=== PATIENT | female | born 1990 | race Hispanic/Latino ===

== ENCOUNTER 2020-05-31 15:02 | Outpatient (CLI) | payer BC, MEDICAID ==
--- NOTE | 2020-05-31 15:58 | ULT ---
OB ULTRASOUND: HISTORY: anatomy FINDINGS: A single live intrauterine gestation is seen with measurements corresponding to an estimated gestatio nal age of 19 weeks 6 daysand JEAN-CLAUDE at 10/19/2020. The estimated weight measures 326 g or 11 ounces (54% by Hadlock criteria). biometry: BPD: 4.45 cm, 19 weeks 4 days HC: 16.67 cm, 19 weeks 3 days AC: 15.16 cm, 20 weeks 3 days FL: 3.14 cm, 19 weeks 6 days heart rate: 155bpm Placenta: Posterior Placenta previa: No KELLI: 15.4cm Cervical length: 4.9cm A three-vessel cord, cord insertion, kidneys, urinary bladder, stomach, 4 chambered heart, late ral ventricles, cerebellum, spine, lips/nose, upper and lower extremities are visualized. No definite anomalies are seen. IMPRESSION: Single live intrauterine gestation of 19 weeks 6 daysestimated gestational age and JEAN-CLAUDE at 10/09/2020
== END 2020-05-31 15:03 | disposition home or self-care (01) ==
LOC: BICULT 15:02
PROVIDERS: ATTEND Family Medicine
DX: Z34.82 Encounter for supervision of other normal pregnancy, second trimester (principal); Z3A.19 19 weeks gestation of pregnancy
CPT/HCPCS: 76805

== ENCOUNTER 2020-08-22 10:51 | Day surgery (SDC) | payer BC, OTHER ==
[2020-08-22 11:28] VITALS: BMI 38.5
== END 2020-08-22 17:45 | disposition home or self-care (01) ==
LOC: L&D/OP 10:51
PROVIDERS: ATTEND Family Medicine
DX: O36.8190 Decreased fetal movements, unspecified trimester, not applicable or unspecified (principal); Z3A.00 Weeks of gestation of pregnancy not specified
CPT/HCPCS: 36415; 86850; 86886

== ENCOUNTER 2020-09-23 09:45 | Inpatient (IN) | payer BC, OTHER ==
[2020-09-23] MEDS ORDERED: Bupivacaine/Epinephrine 0.25% 30 ML VIAL ONE (10:56)
[2020-09-23] MEDS: Lactated Ringer's 1,000 ML IV SCH ×2 (15:20→22:36)
[2020-09-23 15:56] VITALS: BMI 40.6
[2020-09-23] MEDS ORDERED: Diphenoxylate HCl/Atropine Tablet PO PRN (17:06)
[2020-09-23] MEDS ORDERED: Methylergonovine 0.2 MG/ML VIAL IM PRN (17:06)
[2020-09-23] MEDS ORDERED: Misoprostol 200 MCG TAB PR PRN (17:06)
[2020-09-23] MEDS ORDERED: NS / Oxytocin 40 units/1000ml 1,000 ML IV PRN (17:06)
[2020-09-23] MEDS ORDERED: Ibuprofen 800 MG TAB PO PRN (17:06)
[2020-09-23] MEDS ORDERED: hydrALAZINE 20 MG/ML VIAL SLOW IVP PRN (17:06)
[2020-09-23] MEDS ORDERED: Carboprost 250 MCG/ML AMP IM PRN (17:06)
[2020-09-23] MEDS ORDERED: Butorphanol Tartrate 1 MG/ML VIAL SLOW IVP PRN (17:06)
[2020-09-23] MEDS ORDERED: Ondansetron PF 4 MG/2 ML Vial IVP PRN ×2 (17:06→23:22)
[2020-09-23] MEDS ORDERED: Lidocaine 1% (PF) 30 ML VIAL SC PRN (17:06)
[2020-09-23] MEDS ORDERED: HYDROcodone/Acetaminophen 5/325 mg Tablet PO PRN (17:06)
[2020-09-23] MEDS ORDERED: Promethazine HCl 25 MG/ML VIAL IM PRN ×2 (17:06→23:22)
[2020-09-23] MEDS ORDERED: Penicillin G Potassium 5 MILL.UNITS in Sodium Chloride 0.9% 100 ML IVPB SCH (17:15)
[2020-09-23] MEDS ORDERED: NS w/ Oxytocin 10 units 500 ML IV SCH ×2 (17:15)
[2020-09-23 17:22] LABS: Hemoglobin 8.6 g/dL (12.0-16.0); Mean Corpuscular HGB CONC 31.9 g/dL (32.0-36.0); Mean Corpuscular Hemoglobin 25.4 pg (27.0-31.0); Mean Corpuscular Volume 79.6 fL (78.0-98.0); Mean Platelet Volume 8.4 fL (7.4-10.4); Platelet Count 266 thou/uL (130-400); RBC Distribution Width 15.4 % (11.5-14.5); Red Blood Cell (RBC) Count 3.39 mill/uL (4.20-5.40); White Blood Cell (WBC) Count 7.8 thou/uL (4.8-10.8)
[2020-09-23 17:45] LABS: Syphilis Antibody Nonreactive (Nonreactive); Syphilis Antibody Index 0.04 S/CO (<1.00 Non-Reactive)
[2020-09-23 17:46] LABS: HBSAg Index 0.28 S/CO (0-0.99); Hep B Surf Ag Non-Reactive S/CO (NonReactive)
[2020-09-23] MEDS: Misoprostol 100 MCG TAB PO SCH (18:15)
[2020-09-23] MEDS: Fentanyl 4 mcg/Bup 0.1% Cadd 100 ML in Premix Bag 1 BAG EPIDURAL SCH (22:36)
[2020-09-23] MEDS: Penicillin G 2.5 MILL.units 2.5 MILL.UNITS in Premix Bag 1 BAG IVPB SCH (23:05)
[2020-09-23] MEDS ORDERED: Naloxone HCl 0.4 mg/ml Vial IVP PRN ×2 (23:22)
[2020-09-23] MEDS ORDERED: Lactated Ringer's 500 ML IV PRN (23:22)
[2020-09-23] MEDS ORDERED: Acetaminophen 325 MG TAB PO PRN (23:22)
[2020-09-23] MEDS ORDERED: ePHEDrine 50 MG/ML VIAL SLOW IVP PRN (23:22)
[2020-09-23] MEDS ORDERED: diphenhydrAMINE 50 MG/ML VIAL IVP PRN (23:22)
[2020-09-23] MEDS ORDERED: Fentanyl 4 mcg/Bupivacaine 0.1% Cassette 100 ML EPIDURAL SCH (23:30)
[2020-09-23] MEDS ORDERED: Communication Order-Pharmacy FS SCH (23:30)
[2020-09-24] MEDS: Misoprostol 100 MCG TAB PO SCH ×3 (01:17→19:31)
[2020-09-24] MEDS: Penicillin G 2.5 MILL.units 2.5 MILL.UNITS in Premix Bag 1 BAG IVPB SCH ×3 (03:10→19:32)
[2020-09-24] MEDS: Fentanyl 4 mcg/Bup 0.1% Cadd 100 ML in Premix Bag 1 BAG EPIDURAL SCH (06:59)
[2020-09-24 07:15] LABS: SARS-CoV-2 MS2 Positive; SARS-CoV-2 N Gene Positive; SARS-CoV-2 S Gene Positive; SARS-CoV-2 orf1ab Positive
[2020-09-24 09:23] LABS: SARS-CoV-2 by NAA DETECTED (NotDetected)
[2020-09-24] MEDS ORDERED: Penicillin G 2.5 MILL.units 50 ML ONE (10:58)
[2020-09-24] MEDS ORDERED: NS / Oxytocin 40 units/1000ml 1,000 ML ONE (12:24)
[2020-09-24] MEDS ORDERED: HYDROcodone/Acetaminophen 5/325 mg Tablet PO PRN (14:50)
[2020-09-24] MEDS ORDERED: Bisacodyl 10 MG SUPP PR PRN (14:50)
[2020-09-24] MEDS ORDERED: Promethazine HCl 25 MG/ML VIAL IM PRN (14:50)
[2020-09-24] MEDS ORDERED: Milk Of Magnesia 30 ML UDCUP PO PRN (14:50)
[2020-09-24] MEDS ORDERED: hydrALAZINE 20 MG/ML VIAL SLOW IVP PRN (14:50)
[2020-09-24] MEDS ORDERED: Ondansetron PF 4 MG/2 ML Vial IVP PRN (14:50)
[2020-09-24] MEDS ORDERED: NS / Oxytocin 40 units/1000ml 1,000 ML IV SCH (14:50)
[2020-09-24] MEDS ORDERED: diphenhydrAMINE 25 MG CAP PO PRN (14:50)
[2020-09-24] MEDS ORDERED: Lanolin Ointment 7 GM TUBE TOP PRN (14:50)
[2020-09-24] MEDS: Ferrous Sulfate 325 MG TAB PO SCH (19:31)
[2020-09-24] MEDS: Lactated Ringer's 1,000 ML IV SCH (19:32)
[2020-09-24] MEDS: Docusate Calcium (SURFAK) 240 MG CAP PO SCH (20:00)
[2020-09-24] MEDS ORDERED: Ibuprofen 800 MG TAB PO SCH (22:00)
[2020-09-25] MEDS: Ibuprofen 800 MG TAB PO SCH ×3 (04:24→17:27)
[2020-09-25] MEDS: Prenatal Vitamin 1 TAB PO SCH (08:19)
[2020-09-25] MEDS: Docusate Calcium (SURFAK) 240 MG CAP PO SCH ×2 (08:19→21:18)
[2020-09-25] MEDS: Ferrous Sulfate 325 MG TAB PO SCH ×2 (08:19→17:26)
[2020-09-25] MEDS ORDERED: Adacel (T-DAP) 0.5 ML SYRINGE IM ONE (09:00)
[2020-09-26] MEDS: Ibuprofen 800 MG TAB PO SCH ×3 (01:30→18:04)
[2020-09-26] MEDS: Ferrous Sulfate 325 MG TAB PO SCH ×2 (08:31→18:04)
[2020-09-26] MEDS: Prenatal Vitamin 1 TAB PO SCH (08:31)
[2020-09-26] MEDS: Docusate Calcium (SURFAK) 240 MG CAP PO SCH ×3 (08:31→22:44)
[2020-09-26] MEDS: HYDROcodone/Acetaminophen 5/325 mg Tablet PO PRN ×2 (09:57→18:04)
[2020-09-27] MEDS: Ibuprofen 800 MG TAB PO SCH ×2 (04:17→12:03)
[2020-09-27] MEDS: Prenatal Vitamin 1 TAB PO SCH (08:11)
[2020-09-27] MEDS: Ferrous Sulfate 325 MG TAB PO SCH (08:11)
[2020-09-27] MEDS: Docusate Calcium (SURFAK) 240 MG CAP PO SCH (08:11)
[2020-09-27] MEDS: HYDROcodone/Acetaminophen 5/325 mg Tablet PO PRN (08:11)
[2020-09-27 08:30] VITALS: BP 128/73; TEMP 98.6
== END 2020-09-27 18:42 | disposition home or self-care (01) | DRG 805 ==
LOC: L&D 09:45 → L&D-LIB 17:05 → L&D 09-24 11:03 → 3SW 09-24 17:27
PROVIDERS: ADMIT Family Medicine; ATTEND Family Medicine
PROC: 10907ZC Drainage of Amniotic Fluid, Therapeutic from Products of Conception, Via Natural or Artificial Opening (ICD-10-PCS; 2020-09-23)
PROC: 3E0P7VZ Introduction of Hormone into Female Reproductive, Via Natural or Artificial Opening (ICD-10-PCS; 2020-09-23)
PROC: 10E0XZZ Delivery of Products of Conception, External Approach (ICD-10-PCS; principal; 2020-09-24)
DX: O36.0190 Maternal care for anti-D [Rh] antibodies, unspecified trimester, not applicable or unspecified (principal); U07.1 COVID-19; Z37.0 Single live birth; O98.52 Other viral diseases complicating childbirth; Z3A.36 36 weeks gestation of pregnancy; O69.81X0 Labor and delivery complicated by cord around neck, without compression, not applicable or unspecified; Z23 Encounter for immunization
CPT/HCPCS: 51702; 85027; 86780; 86850; 86900; 86901; 86922; 87340; 87635; J2540; J2590; J3490; U0003

== ENCOUNTER 2023-08-09 19:32 | Emergency (ER) | payer MEDICAID, SELFPAY ==
[2023-08-09 20:19] LABS: #Monocytes 0.3 thou/uL (0.11-0.59); #Neutrophils 6.5 thou/uL (1.40-6.50); %Basophils 0.1 % (0.0-1.0); %Eosinophils 0.1 % (0.0-10.0); %Lymphocytes 14.6 % (21.0-51.0); %Monocytes 4.3 % (0.0-10.0); %Neutrophils 80.6 % (42.0-75.0); Hematocrit 34.3 % (36.0-47.0); Hemoglobin 10.6 g/dL (12.0-16.0); Mean Corpuscular HGB CONC 30.9 g/dL (32.0-36.0); Mean Corpuscular Hemoglobin 24.8 pg (27.0-31.0); Mean Corpuscular Volume 80.3 fl (78.0-98.0); Mean Platelet Volume 10.6 fL (7.4-10.4); Platelet Count 263 10x3/uL (130-400); Red Blood Cell (RBC) Count 4.27 mill/uL (4.20-5.40)
[2023-08-09 20:27] LABS: BHCG - Serum Negative (NEGATIVE); Pregs Control Background? CLEAR/WHITE (CLR/WHITE); Pregs Control Bar Appear? YES (CONTROL BAR)
[2023-08-09 20:44] LABS: ALT (SGPT) Less than 7 U/L (8-55); AST (SGOT) 13 U/L (5-34); Albumin 5.1 g/dL (3.5-5.0); Alkaline Phosphatase 65 U/L (40-110); Anion Gap 12 mmol/L (10-20); BUN (Urea Nitrogen) 12 mg/dL (7.0-18.7); Bilirubin, Total 0.7 mg/dL (0.2-1.2); Calc. Creatinine Clearance 0 mL/min (70-130); Calcium 9.5 mg/dL (7.8-10.44); Carbon Dioxide 23 mmol/L (22-29); Chloride 104 mmol/L (98-107); Estimated GFR 117; Globulin 2.9 g/dL (2.4-3.5); Glucose 92 mg/dL (70-105); Potassium 3.4 mmol/L (3.5-5.1); Sodium 136 mmol/L (136-145)
[2023-08-09 22:29] LABS: Bacteria/HPF None Seen HPF (None Seen); Bilirubin Negative (Negative); Blood, Urine 3+ (Negative); CAUTI Indications for Culture Dysuria,urgency,freq; Clarity Clear (Clear); Glucose, Urine (Dipstick) Normal (Negative); Ketone, Urine Trace mg/dL (Negative); Leukocyte Negative Leu/uL (Negative); Nitrite Negative (Negative); Protein, Urine (Dipstick) 30 mg/dL (Neg-Trace); Specific Gravity, Urine 1.034 (1.002-1.036); Urobilinogen 3 mg/dL (Less than 2); WBC/HPF 0-3 HPF (0-3)
[2023-08-09 22:35] LABS: Urine Culture Reflex No No
[2023-08-10] MEDS ORDERED: Ondansetron ODT 4 MG TAB ONE (00:49)
== END 2023-08-10 00:52 | disposition home or self-care (01) ==
LOC: ERS 19:32
DX: O03.9 Complete or unspecified spontaneous abortion without complication (principal)
CPT/HCPCS: 36415; 76856; 80053; 81001; 84703; 85025; 86900; 86901; Q0162